=== PATIENT | female | born 1960 | race Caucasian/White ===

== ENCOUNTER → 2016-06-28 | Outpatient (CLI) | payer OTHER ==
--- NOTE | 2016-06-28 16:28 | REPMRS ---
Patient History The patient states she had a clinical breast exam in 07/2015. Patient is postmenopausal. No known family history of cancer. Benign stereotactic core biopsy of the right breast, 2007. Taking unspecified hormones for 6 years. Digital Woman Screen Mammo: June 28, 2016 - Exam #: [id number] Bilateral CC and MLO view(s) were taken. Technologist: Suze Ho, Technologist Prior study comparison: September 09, 2013, left breast digital mammo diagnostic unilateral, performed at [facility]. August 08, 2013, digital woman screen mammo performed at [facility]. June 26, 2012, digital woman screen mammo performed at [facility]. February 22, 2011, bilateral bilat screen digital mammo performed at [facility]. FINDINGS: The breast tissue is heterogeneously dense. This may lower the sensitivity of mammography. There has been no change in the appearance of the mammogram from the prior studies. There is a moderate amount of residual fibroglandular tissue which is fairly symmetric. A stereotactic clip again seen at 8 o'clock in right breast. There is no interval development of dominant mass, architectural distortion, or clustered microcalcification typical of malignancy. No significant changes when compared with prior studies. ASSESSMENT: BI-RADS/ACR category 1 mammogram. Negative. Recommendation Routine screening mammogram in 1 year (for women over age 40). This mammogram was interpreted with the aid of an FDA-approved computer-aided dectection system. A. Negative x-ray reports should not delay biopsy if a dominant or clinically suspicious mass is present. B. Four to eight percent of cancers are not identified by mammography. C. Adenosis and dense breast may obscure an underlying neoplasm. Electronically Signed By: Myke Flores MD 06/28/16 2352
== END ==
LOC: M WHC 14:58
PROVIDERS: ATTEND Obstetrics & Gynecology
DX: Z12.31 Encounter for screening mammogram for malignant neoplasm of breast (principal)

== ENCOUNTER 2016-09-13 23:40 | Emergency (ER) | payer OTHER ==
[~2016-09-13] VITALS: Ht 165.1 cm; Wt 87.1 kg
[2016-09-13] MEDS ORDERED: MULT1TAB18 PO (23:49)
[2016-09-13] MEDS ORDERED: MEDR2.5T2 PO (23:49)
[2016-09-14] MEDS ORDERED: FLUORESCEIN OPHTH 1 MG STRIP As Ordered ONE (01:03)
[2016-09-14] MEDS ORDERED: TETRACAINE 0.5% OPHTH SOLN 4ML OU ONE (01:15)
[2016-09-14 01:44] VITALS: BP 128/65
== END 2016-09-14 01:45 | disposition home or self-care (01) ==
LOC: M ED 09-14 00:59
DX: H18.20 Unspecified corneal edema (principal)

== ENCOUNTER → 2017-03-23 | Outpatient (CLI) | payer OTHER ==
[~2017-03-23] MED LIST: MEDR1TAB2 PO; MULT1TAB18 PO
--- NOTE | 2017-03-29 10:33 | DEXA ---
AP SPINE L1 - L4 1.274 0.6 1.6 LT FEMUR TOTAL 1.292 2.3 3.0 RT FEMUR TOTAL 1.240 1.8 2.6 TOTAL BODY TOTAL OTHER COMMENTS: Normal bone densitometry of the spine and hips. The increased density of the spine does not represent a significant change. The increased density of the left hip does represent a significant change. The increased density of the right hip does represent a significant change. The density of the spine is increased 2.0% since the initial exam on 02/22/2011. The spine density has increased 1.2% since the most recent exam on 08/08/2013. The density of the left hip has increased 3.0% since the initial exam on 2010. The density of the left hip has increased 2.2% since the most recent exam on 11/2013. The density of the right hip has increased 1.1% since the initial exam on 2010. The density of the right hip has increased 3.9% since the most recent exam on . FOLLOW-UP: Recommendation for the next bone density exam: 5 years. SARAD
== END ==
LOC: M WHC 13:52
PROVIDERS: ATTEND Obstetrics & Gynecology
DX: Z13.820 Encounter for screening for osteoporosis (principal)